=== PATIENT | male | born 1985 | race African-American/Black ===

== ENCOUNTER 2024-08-13 01:05 | Emergency (ER) | payer MEDICARE, MEDICAID, SELFPAY ==
[2024-08-13 01:08] VITALS: BP 136/89
--- NOTE | 2024-08-13 01:33 | ED.GENMED ---
History of Present Illness
General
Chief Complaint: Crisis Evaluation
Source: patient and records
Exam Limitations: none
Time Seen by Provider: 08/13/24 01:17
Nursing documentation reviewed up to this point in time: agreed with
History of Present Illness
History of Present Illness:
39-year-old male with a past medical history of early Willi syndrome, hypertension, diabetes, obesity who presents to the emergency room from his long term where he lives long-term; presents for evaluation of suicidality. Patient says that he is
very unhappy where he is living and has been for some time. He says that recently he has been having suicidal thoughts and says that he has been thinking about hanging himself. He also says he has had thoughts about attacking the staff there. He
denies any hallucinations. He denies any physical complaints. He does have prior history of suicide attempt by running in the street he says.
Past History
Past History
ED Past Medical History: Psychiatric (Depression) and Other (Suicide attempt)
ED Past Surgical History: None
Social History
Tobacco: Non-smoker
Alcohol: None
Drug: None
Personal: Single
Living: alone
Review of Systems
Review of Systems
All Other Systems: ROS reviewed and negative except as documented in HPI and ROS
Respiratory: Denies trouble breathing
Cardiac: Denies chest pain
ABD/GI: Denies abdominal pain
Psychiatric: Reports suicidal; Denies hallucinations
Phy Exam
Physical Exam
Physical Exam:
General: Awake, alert, oriented x3; no acute distress
Head: Normocephalic, atraumatic
Eyes: Conjunctiva normal
Throat: Airway intact, handling secretions
Neck: Trachea midline, supple without meningismus
Lungs: Breathing comfortably no distress
Heart: Regular rate
Neuro: No gross deficits, ambulatory
Extremities: Warm and well-perfused
Psych: Depressed mood, normal affect
Scores
Heart Failure Risk
Heart Failure Risk Score: Not Applicable
Heart Score for Chest Pain Patients
STEMI patient?: Not applicable
Withdrawal Assessment of Alcohol
Withdrawal Assessment Completed?: Not applicable
Course
Orders/Labs/Results
Orders:
Orders
08/13/24 01:17
Crisis Consult Urgent
Reason for Consult: SI
08/13/24 01:18
Alcohol Urgent
Drug Screen, Urine [Urine Drug Abuse Screen] Urgent
Date Specimen was Collected: 08/13/24
Time Specimen was Collected: :24
Vital Signs
Initial and Last Documented VS:
Initial Vital Signs
Temp Pulse Resp BP Pulse Ox
36.6 C 80 20 136/89 100
08/13/24 01:08 08/13/24 01:08 08/13/24 01:08 08/13/24 01:08 08/13/24 01:08
Last Documented Vital Signs
Temp Pulse Resp BP Pulse Ox
36.6 C 80 20 136/89 100
08/13/24 01:08 08/13/24 01:08 08/13/24 01:08 08/13/24 01:08 08/13/24 01:08
MDM/Problems Addressed
Differential Diagnosis Includes:
Suicidal ideation
MDM/Problems Addressed:
39-year-old male presents for evaluation of suicidal ideation with plan to hang himself. Also complaining of thoughts of harming staff at his long term. He has history of multiple visits for previous including previous 302. He is willing to stay
for psychiatric treatment he says. Case discussed with crisis for assessment. Observe on one-to-one observation.
*Pulse Oximetry
Patient hypoxic: no
*Critical Care Note
Total Time (30-74mins, 75-104mins- exclusive of procedures): Not Applicable
Data Reviewed
Source: patient and records
Patient Management
Discussion with other providers: [employer] (Discussed with crisis staff)
ED Attending Note
-
Portions of this chart may have been created with voice recognition software.� Occasional wrong word or��sound alike� substitutions may have occurred due to the inherent limitations of voice recognition software.
Discharge Plan
Departure
Prescriptions:
No Action
calcium carbonate 500 MG tablet
500 mg PO DAILY
ibuprofen 200 MG tablet
200 mg PO DAILY PRN (Reason: dandruff)
cholecalciferol (vitamin D3) [Vitamin D3] 1,000 UNIT capsule
1,000 unit PO DAILY
vazbcpvwqibc-nsmz-kbznh acid [Centrum] 1 EACH tablet
1 ea PO DAILY
Celexa
25 mg pe PO DAILY
bupropion HCl 150 MG tablet extended release 24 hr
150 mg PO DAILY Qty: 30 0RF
Interventions
Interventions:
*Risk Screen - Suicide Last Done: 08/13/24 01:08
*General Assessment Last Done: 08/13/24 01:08
*Neglect/Abuse Screening Last Done: 08/13/24 01:25
ED-Psychological Assessment Last Done: 08/13/24 01:24
Discharge Date and Time
Print Language: ICELANDIC
[2024-08-13 02:08] LABS: Amphetamines Negative (Negative); Barbiturates Negative (Negative); Benzodiazepines Negative (Negative); Buprenorphine Negative (Negative); Cocaine Negative (Negative); Marijuana Negative (Negative); Methadone Negative (Negative); Methamphetamines Negative (Negative); Opiates Negative (Negative); Phencyclidine Negative (Negative); Tricyclic Antidepressants Negative (Negative)
[2024-08-13 02:13] LABS: % Basophils 0.6 % (0-2); % Eosinophils 1.7 % (0-6); % Immature Granulocytes 0.3 % (0-0.5); % Lymphocytes 41.4 % (20.5-51.1); % Monocytes 12.8 % (1.7-9.3); % Neutrophils 43.2 % (42.2-75.2); Absolute Eosinophils 0.1 10^3/uL (0-0.7); Absolute Lymphocytes 2.7 10^3/uL (1.2-3.4); Absolute Monocytes 0.8 10^3/uL (0.1-0.6); Absolute Neutrophils 2.8 10^3/uL (1.4-6.5); Hematocrit 39.4 % (39.0-52.0); Hemoglobin 12.9 g/dL (13.0-18.0); Mean Corp Hgb Conc. 32.7 g/dL (33.0-37.0); Mean Corpuscular Hgb 27.7 pg (27.0-31.0); Mean Corpuscular Volume 84.7 fL (80.0-94.0); Mean Platelet Volume 8.7 fL (7.4-10.4); Nucleated Red Blood Cells % 0 % (-); Platelet Count 286 10^3/uL (130-400); Red Blood Cell Count 4.65 10^6/uL (4.70-6.10); Red Cell Dist. Width 13.8 % (11.5-14.5); White Blood Cell Count 6.5 10^3/uL (4.8-10.8)
[2024-08-13 02:35] LABS: ALT (SGPT) 19 U/L (0-50); AST (SGOT) 26 U/L (17-59); Albumin 4.1 g/dl (3.5-5.0); Alkaline Phosphatase 84 U/L (38-126); Blood Urea Nitrogen 20 mg/dl (9-20); Calcium 9.2 mg/dl (8.4-10.2); Carbon Dioxide 22 mmol/L (22-30); Chloride 107 mmol/L (98-107); Glucose 91 mg/dl (70-99); Sodium 138 mmol/L (135-145); Total Bilirubin 0.4 mg/dl (0.2-1.3); Total Protein 6.9 g/dl (6.3-8.2); eGFR > 60.00
[2024-08-13 02:37] LABS: Alcohol None Detected
[2024-08-13 08:43] VITALS: BP 153/86
== END 2024-08-13 10:04 ==
LOC: EMR 01:05
PROVIDERS: EMERGENCY PHYSICIAN Emergency Medicine
DX: R45.851 Suicidal ideations (principal); F32.A Depression, unspecified; I10 Essential (primary) hypertension; E11.9 Type 2 diabetes mellitus without complications; E66.9 Obesity, unspecified; Q87.11 Prader-Willi syndrome; F41.9 Anxiety disorder, unspecified; F31.9 Bipolar disorder, unspecified; Z91.51 Personal history of suicidal behavior
CPT/HCPCS: 99285; 80053; 80306; 82077; 85025

== ENCOUNTER 2025-05-22 13:56 | Emergency (ER) | payer BC, SELFPAY ==
[2025-05-22 14:02] VITALS: BP 175/124
[2025-05-22 14:26] VITALS: BMI 40.5
--- NOTE | 2025-05-22 14:37 | EDRN ---
Received patient in bed. Patient is calm and coopperative. Patient stated that he has thoughts of suicide and has a plan. Patient stated 'I don't want to say right now' when asked what his pain is.
--- NOTE | 2025-05-22 15:25 | ED.GENMED ---
History of Present Illness
General
Chief Complaint: Crisis Evaluation
Source: patient
Exam Limitations: none
Time Seen by Provider: 05/22/25 14:15
Nursing documentation reviewed up to this point in time: agreed with
History of Present Illness
History of Present Illness:
Patient with history of Prader-Willi syndrome, anxiety, depression, bipolar disorder, and chronic suicidal ideation, presents to ED accompanied by police officers, after he walked out of his group residence, after expressing suicidal thoughts.
Patient denies any recent illness. Denies recent change in medications or diet. Denies homicidal ideation. Patient does not have any suicidal plans at this time.
Past History
Past History
ED Past Medical History: Psychiatric (Depression) and Other (Suicide attempt)
ED Past Surgical History: None
Social History
Tobacco: Non-smoker
Alcohol: None
Drug: None
Personal: Single
Living: alone
Review of Systems
Review of Systems
Allergies reviewed?: Yes
All Other Systems: ROS reviewed and negative except as documented in HPI and ROS
Constitutional: Reports no symptoms
ABD/GI: Reports no symptoms
Musculoskeletal: Reports no symptoms
Skin: Reports no symptoms
Neurological: Reports no symptoms
Psychiatric: Reports suicidal
Phy Exam
Physical Exam
Physical Exam:
Physical Exam
General: no apparent distress, not acutely ill. afebrile
Head: nc/at. eomi
Neck: supple. normal range of motion.
Heart: s1/s2 regular rate and rhythm
Lungs: no acute respiratory distress. clear bilaterally
Abdomen: normal bowel sounds. not tender.
Neuro: alert and oriented x 3. no focal neurological deficits
Skin: no rash
Psychiatric: well kept. interactive and cooperative
Extremities: no edema. no calf tenderness.
Course
Orders/Labs/Results
Orders:
Orders
05/22/25 14:08
1:1 Observation - Suicide/ Violent Behavior As Directed
Crisis Consult Urgent
Reason for Consult: SI
05/22/25 14:23
PSYCHIATRY CONSULT Urgent
Consulting Provider: Kash Zuñiga
Was physician already notified: Yes
Reason for consult: suicidal ideation
Vital Signs
Initial and Last Documented VS:
Initial Vital Signs
Temp Pulse Resp BP Pulse Ox
98.5 F 76 18 175/124 95
05/22/25 14:02 05/22/25 14:02 05/22/25 14:02 05/22/25 14:02 05/22/25 14:02
Last Documented Vital Signs
Temp Pulse Resp BP Pulse Ox
98.5 F 76 18 175/124 95
05/22/25 14:02 05/22/25 14:02 05/22/25 14:02 05/22/25 14:02 05/22/25 15:26
MDM/Problems Addressed
MDM/Problems Addressed:
Pt evaluated in ED by (psychiatry) -does not feel that patient would benefit from inpatient psychiatric evaluation and treatment, as current situation appears to be circumstantial, with miscommunication between patient and workers at his
residence. As such, patient will be discharged to the care of staff from his residence.
*Pulse Oximetry
SaO2: 95
Oxygen Mode of Delivery: Room air
Patient hypoxic: no
*Critical Care Note
Total Time (30-74mins, 75-104mins- exclusive of procedures): Not Applicable
ED Attending Note
-
Portions of this chart may have been created with voice recognition software.� Occasional wrong word or��sound alike� substitutions may have occurred due to the inherent limitations of voice recognition software.
Discharge Plan
Departure
Patient Disposition: Home (Routine Discharge)
Date of Disposition: 05/22/25
Time of Disposition: 15:26
Patient with high blood pressure during this ER visit?: Yes
Condition: Fair
Discharge Problem:
Suicidal ideation
Instructions: Suicide prevention
Prescriptions:
No Action
calcium carbonate 500 MG tablet
500 mg PO DAILY
ibuprofen 200 MG tablet
200 mg PO DAILY PRN (Reason: dandruff)
cholecalciferol (vitamin D3) [Vitamin D3] 1,000 UNIT capsule
1,000 unit PO DAILY
wdnewbbljobx-fpak-bvkgy acid [Centrum] 1 EACH tablet
1 ea PO DAILY
Celexa
25 mg pe PO DAILY
bupropion HCl 150 MG tablet extended release 24 hr
150 mg PO DAILY Qty: 30 0RF
Activity Restrictions/Additional Instructions:
As discussed, please follow-up with your therapist for continual evaluation and treatment.
Interventions
Interventions:
*Risk Screen - Suicide Last Done: 05/22/25 14:02
*General Assessment Last Done: 05/22/25 14:02
*Neglect/Abuse Screening Last Done: 05/22/25 14:02
*ED- Fall Risk Assessment Last Done: 05/22/25 14:27
*ED COVID-19 Vaccine History Last Done: 05/22/25 14:02
*ED Influenza Vaccine History Last Done: 05/22/25 14:02
*Nursing Disposition Last Done: 05/22/25 16:11
ED-Psychological Assessment Last Done: 05/22/25 14:26
Discharge Date and Time
Discharge Date/Time: 05/22/25 16:05
Print Language: UGANDAN
--- NOTE | 2025-05-22 16:11 | EDRN ---
Discharge instructions given to patient's caregivers.
--- NOTE | 2025-05-22 23:18 | CS.PSYCHR ---
Consult Summary - Psychiatry
-
pt seen this afternoon in consultation for suicidal ideation
40 yo man with Prader-Willi syndrom, resident of [facility], brought to ED by police after he left residence and went to street claiming he wanted to by suicide by having cars hit him. [place] in any danger of this, but police called and brought him to
ED for assessment.
Known to Crisis staff for many similar presentations, generally in setting of disagreements with staff of his [facility]. Pt reports dissatisfaction with current medication regimen but says his treating psychiatrist Dr Winchester does not listen to him.
Reports that events to day happened in setting of staff unwillingness to allow him to spend his money ($21) which he is very cagey about describing how he came to possess it. Jessica at staff, went to street, now says he does not want to go back with
them (staff is in waiting room.) Omega says that if he goes back there then he will just do the same thing and end up back here.
On exam pt is calm, smiling, frequently rubbing head. Has remarkable appearance, close to albinism, with notably prominent belly. States he wants to commit suicide but also complains of how staff treats him and how he wants them to change. Unable to
say how being in hospital will be of help. Rotely states he wants to . Language is a bit simpler than usual but not especially evident intelletual disability. Clearly manipulative to gain staff acquiescence.
Impression: Adjustment disorder, mild intellectual disability, Prader-Willi
Rec: Staff have already engaged their behavioral services tech to help with management of these recurring presentations. Will limit any positive reinforcement of such behavior by declining to hospitalize him or change medications.
== END 2025-05-22 16:05 | disposition home or self-care (01) ==
LOC: EMR 13:56
PROVIDERS: CONSULT PHYSICIAN Psychiatry & Neurology Psychiatry; EMERGENCY PHYSICIAN Emergency Medicine; FAMILY PHYSICIAN Family Medicine
DX: R45.851 Suicidal ideations (principal); F70 Mild intellectual disabilities; F43.22 Adjustment disorder with anxiety; F31.9 Bipolar disorder, unspecified; I10 Essential (primary) hypertension; Q87.11 Prader-Willi syndrome; F32.A Depression, unspecified; E11.9 Type 2 diabetes mellitus without complications; F41.9 Anxiety disorder, unspecified; F50.9 Eating disorder, unspecified; Z88.8 Allergy status to other drugs, medicaments and biological substances
CPT/HCPCS: 99285